=== PATIENT | male | born 1955 | race American Indian/Alaskan Native ===

== ENCOUNTER 2023-11-03 14:58 | Emergency (ER) | payer OTHER, SELFPAY ==
[2023-11-03 15:03] VITALS: BP 155/86; PULSE 75; RESP 16; TEMP 36.2; O2SAT 98; BMI 32.5
--- NOTE | 2023-11-03 15:09 | DI.RAD.S_ITS ---
PROCEDURE: XR FEMUR RT MIN 2V INDICATIONS: fall, pain with ambulation TECHNIQUE: 2 views of the femur were acquired. COMPARISON: None. FINDINGS: Bones: No fractures or dislocations. No suspicious bony lesions. Medial lateral compartmental knee degenerative changes Soft tissues: No suspicious soft tissue calcifications or masses. Atherosclerotic vascular calcification IMPRESSION: No evidence of fracture or lytic lesion. Osteoarthritis Approved by: Garry Kulkarni M.D. on 11/03/2023 at 16:00
--- NOTE | 2023-11-03 15:09 | DI.RAD.S_ITS ---
PROCEDURE: XR KNEE RT 3V INDICATIONS: fall, pain with ambulation TECHNIQUE: 3 views of the knee were acquired. COMPARISON: None. FINDINGS: Bones: No fractures or dislocations. No suspicious bony lesions. Medial lateral compartmental joint space narrowing with lateral marginal osteophyte. Soft tissues: Moderate joint effusion present. IMPRESSION: No evidence of fracture or traumatic malalignment. Osteoarthritis and moderate joint effusion Approved by: Garry Kulkarni M.D. on 11/03/2023 at 16:04
--- NOTE | 2023-11-03 16:34 | ED.FALL ---
HPI - Fall <Neville Saunders PA-C - Last Filed: 11/03/23 17:54> General Chief Complaint: Fall Stated Complaint: [place]jured on ship Time Seen by Provider: 11/03/23 16:31 Source: patient Mode of arrival: Ambulatory History of Present Illness HPI Narrative: This is a 68-year-old male presents emergency department due to right knee and thigh pain as well as left hip pain after slipping and falling while working on a boat. It was a mechanical ground level fall. He had not hit head or lose conscious. Denies any numbness. Denies any other pain to the rest of his body. Related Data Allergies Allergy/AdvReac Type Severity Reaction Status Date / Time No Known Drug Allergies Allergy Verified 11/03/23 15:03 Review of Systems <JANNETH Patel Last Filed: 11/03/23 17:54> Review of Systems Narrative: GENERAL: Denies chills, fatigue, malaise, fever, sweats. HEENT: Denies sinus pain, ear pain, sore throat, difficulty swallowing, dizziness. RESPIRATORY: Denies dyspnea, cough, wheezing, hemoptysis, sputum. CARDIOVASCULAR: Denies chest pain, palpitations, orthopnea, edema, GASTROINTESTINAL: Denies nausea, vomiting, abdominal pain, diarrhea, constipation, melena. : Denies dysuria, frequency, incontinence, hematuria, urinary retention. MUSCULOSKELETAL: Reports right knee, right thigh, left hip pain SKIN: Denies rash, skin lesions, or other NEUROLOGIC: Denies weakness, headache, numbness, change in speech, confusion, seizures, incoordination. PSYCHIATRIC: No concerning psychosocial issues. 12 point review of systems is negative except for those stated above Patient History <Neville Saunders PA-C - Last Filed: 11/03/23 17:54> Social History Smoking Status: Never smoker Smoking Status: Never smoker Substance Use Type: does not use Exam <JANNETH Patel Last Filed: 11/03/23 17:54> Narrative Exam Narrative: GENERAL: Well-developed patient, in mild distress. HEAD: Atraumatic. Normocephalic. EYES: Pupils equal round and reactive. Extraocular motions intact. No scleral icterus. No injection or drainage. ENT: Nose without bleeding, purulent drainage. Throat without erythema, tonsillar hypertrophy or exudate. Airway patent. NECK: Trachea midline. Non tender EXTREMITIES: Tenderness to palpation to the right knee, thigh, left hip. Neurovascularly intact throughout. No joint laxity on right lower extremity exam. NEURO: AOx3. SKIN: No rash or erythema of visible areas Initial Vital Signs Initial Vital Signs: Vital Signs Temperature 97.1 F L 11/03/23 15:03 Pulse Rate 75 11/03/23 15:03 Respiratory Rate 16 11/03/23 15:03 Blood Pressure 155/86 H 11/03/23 15:03 Pulse Oximetry 98 11/03/23 15:03 Oxygen Delivery Method Room Air 11/03/23 15:03 <Qing Prather DO - Last Filed: 11/09/23 07:18> Initial Vital Signs Initial Vital Signs: Vital Signs Temperature 97.1 F L 11/03/23 15:03 Pulse Rate 75 11/03/23 15:03 Respiratory Rate 16 11/03/23 15:03 Blood Pressure 155/86 H 11/03/23 15:03 Pulse Oximetry 98 11/03/23 15:03 Oxygen Delivery Method Room Air 11/03/23 15:03 Course <Neville Saunders PA-C - Last Filed: 11/03/23 17:54> Orders Ordered: Discontinued Medications Acetaminophen (Acetaminophen 325 Mg Tablet) 975 mg PO NOW ONE Stop: 11/03/23 18:11 Last Admin: 11/03/23 18:21 Dose: 975 mg Documented By: SEVERINO Ibuprofen (Ibuprofen 400 Mg Tablet) 800 mg PO NOW ONE Stop: 11/03/23 18:11 Last Admin: 11/03/23 18:20 Dose: 800 mg Documented By: SEVERINO Vital Signs Vital signs: Vital Signs - 8 hr 11/03/23 15:03 Temperature 97.1 F L Pulse Rate 75 Respiratory Rate 16 Blood Pressure 155/86 H Pulse Oximetry 98 Oxygen Delivery Method Room Air <Qing Prather DO - Last Filed: 11/09/23 07:18> Orders Ordered: Discontinued Medications Acetaminophen (Acetaminophen 325 Mg Tablet) 975 mg PO NOW ONE Stop: 11/03/23 18:11 Last Admin: 11/03/23 18:21 Dose: 975 mg Documented By: SEVERINO Ibuprofen (Ibuprofen 400 Mg Tablet) 800 mg PO NOW ONE Stop: 11/03/23 18:11 Last Admin: 11/03/23 18:20 Dose: 800 mg Documented By: SEVERINO Vital Signs Vital signs: Vital Signs - 8 hr 11/03/23 15:03 Temperature 97.1 F L Pulse Rate 75 Respiratory Rate 16 Blood Pressure 155/86 H Pulse Oximetry 98 Oxygen Delivery Method Room Air MDM - Fall <Neville Saunders PA-C - Last Filed: 11/03/23 17:54> Imaging Data Extremity x-ray #1: Radiologist's Impression: [place] [address] XRay Report Signed Patient: Alden Bradshaw MR#: [id number] : 1955 Acct:[id number] Age/Sex: 68 / M Date of Service: 11/03/23 Loc: ED Accession Number: [id number] Procedure: XR knee RT 3V Ordering Provider: Qing Prather D.O. PROCEDURE: XR KNEE RT 3V INDICATIONS: fall, pain with ambulation TECHNIQUE: 3 views of the knee were acquired. COMPARISON: None. FINDINGS: Bones: No fractures or dislocations. No suspicious bony lesions. Medial lateral compartmental joint space narrowing with lateral marginal osteophyte. Soft tissues: Moderate joint effusion present. IMPRESSION: No evidence of fracture or traumatic malalignment. Osteoarthritis and moderate joint effusion Approved by: Garry Kulkarni M.D. on 11/03/2023 at 16:04 Extremity x-ray #2: Radiologist's Impression: [address] [address] XRay Report Signed Patient: Alden Bradshaw MR#: [id number] : 1955 Acct:[id number] Age/Sex: 68 / M Date of Service: 11/03/23 Loc: ED Accession Number: [id number] Procedure: XR femur RT min 2V Ordering Provider: Qing Prather D.O. PROCEDURE: XR FEMUR RT MIN 2V INDICATIONS: fall, pain with ambulation TECHNIQUE: 2 views of the femur were acquired. COMPARISON: None. FINDINGS: Bones: No fractures or dislocations. No suspicious bony lesions. Medial lateral compartmental knee degenerative changes Soft tissues: No suspicious soft tissue calcifications or masses. Atherosclerotic vascular calcification IMPRESSION: No evidence of fracture or lytic lesion. Osteoarthritis Approved by: Garry Kulkarni M.D. on 11/03/2023 at 16:00 Extremity x-ray #3: Radiologist's Impression: [address] [address] XRay Report Signed Patient: Alden Bradshaw MR#: [id number] : 1955 Acct:[id number] Age/Sex: 68 / M Date of Service: 11/03/23 Loc: ED Accession Number: [id number] Procedure: XR hip w pel if done LT 2V Ordering Provider: Neville Saunders P.A-C PROCEDURE: XR HIP W PEL IF DONE LT 2V INDICATIONS: L hip pain after fall TECHNIQUE: To views of the hip were acquired. COMPARISON: None. FINDINGS: Bones: No fractures or dislocations. No suspicious bony lesions. The visualized pelvic ring appears intact. Soft tissues: No suspicious soft tissue calcifications or masses. IMPRESSION: No acute bony abnormality. fracture. Approved by: Garry Kulkarni M.D. on 11/03/2023 at 16:30 MDM Narrative Medical decision making narrative: ED course: This is a 68-year-old male presents emergency department due to a mechanical ground level fall. X-rays were all negative. Low concern for any kind of ligament or meniscal injury. Recommended supportive care. CC: Ground level fall, right lower extremity and left buttock pain Complicating co-morbidities: None Data collected from: Previous notes Medical records reviewed: Patient has not been to this emergency department the past Differential considered, but not limited to: Fracture, soft tissue injury Exam documented above, pertinent findings include: Reassuring exam Lab Test results independently reviewed as above. Pertinent findings: None obtained Imaging studies independently reviewed: X-rays negative for acute fractures Scores Used: None MIPS Elements: None Consultations: None Treatments: None Re-evaluations: None Discussion: Discussed plan with the patient was comfortable with the plan Diagnosis: Ground level fall Disposition: see below, along with detailed discharge instructions that have been reviewed with patient as well as indications for ED re-evaluation and additional outpatient follow up Discharge Plan Departure Patient Disposition: Home Clinical Impression: Right leg injury Activity Restrictions/Additional Instructions: Thank you for coming to the [facility] Emergency Department today. As we discussed your right leg and left hip x-rays were all negative for fractures. You may use. Ice, rest, ibuprofen Tylenol as needed for the pain. Please return to the emergency department if you develop any significant new or worsening pain, numbness, or any other concerning signs or symptoms. I hope you feel better soon. Please follow up with your primary care provider within a week if your symptoms continue. If you do not have a primary care provider please contact the [facility] Resource line at [phone]. They will ask some questions about your medical history and help you get set up with a provider in the community. Referrals: Miscellaneous,Doctor, [Primary Care Provider] - Stand Alone Forms: Patient Portal/API ED Sign-out <Qing Prather DO - Last Filed: 11/09/23 07:18> Cosign ED Attending Laurie Attestation: I was available for consultation.
--- NOTE | 2023-11-03 16:41 | DI.RAD.S_ITS ---
PROCEDURE: XR HIP W PEL IF DONE LT 2V INDICATIONS: L hip pain after fall TECHNIQUE: To views of the hip were acquired. COMPARISON: None. FINDINGS: Bones: No fractures or dislocations. No suspicious bony lesions. The visualized pelvic ring appears intact. Soft tissues: No suspicious soft tissue calcifications or masses. IMPRESSION: No acute bony abnormality. fracture. Approved by: Garry Kulkarni M.D. on 11/03/2023 at 16:30
[2023-11-03 18:00] VITALS: BP 168/92; PULSE 74; RESP 18; O2SAT 98
[2023-11-03] MEDS: IBUPROFEN 400 MG TABLET 800 MG PO (18:20)
[2023-11-03] MEDS: ACETAMINOPHEN 325 MG TABLET 975 MG PO (18:21)
== END 2023-11-03 18:28 | disposition home or self-care (01) ==
PROVIDERS: Emergency Provider Physician Assistant Medical
DX: S89.91XA Unspecified injury of right lower leg, initial encounter (principal); W01.0XXA Fall on same level from slipping, tripping and stumbling without subsequent striking against object, initial encounter
CPT/HCPCS: 73502; 73552; 73562; 99283